=== PATIENT | male | born 1970 | race Hispanic/Latino ===

== ENCOUNTER 2019-01-24 14:28 | Emergency (ER) | payer OTHER ==
--- OUTSIDE RECORDS SUMMARY | 2019-01-24 14:31 | XMS REPORT | Clinical Summary ---
:1970 Author Organization [facility] Address [address] [place] [address] Care Team Providers Name Role Phone Ebenezer Callejas Primary Care Provider Allergies Active Allergy Reactions Severity Noted Date Comments Penicillins Other (See Comments) 10/02/2017 As a kid Medications Medication Sig Dispensed Refills Start Date End Date Status QUEtiapine (SEROQUEL) Take 100 mg by 0 Active 100 MG tablet mouth nightly. rivaroxaban (XARELTO) Take 1 tablet (10 30 tablet 0 10/12/2017 Active 10 mg Tab tablet mg total) by mouth daily with dinner. apixaban (ELIQUIS) 5 Take 1 tablet (5 74 tablet 0 11/15/2017 Active mg Tab tablet mg total) by mouth 2 (two) times daily Take 2 tablets twice a day for 7 days then 1 tablet twice a day.. Active Problems Problem Noted Date Osteoarthritis of right ankle, unspecified osteoarthritis type 10/12/2017 Osteoarthritis of right ankle 10/10/2017 Social History Tobacco Use Types Packs/Day Years Used Date Never Smoker Smokeless Tobacco: Never Used Alcohol Use Drinks/Week oz/Week Comments Yes 4 Cans of beer 2.4 Sex Assigned at Date Recorded Not on file Job Start Date Occupation Industry Not on file Not on file Not on file Travel History Travel Start Travel End No recent travel history available. Last Filed Vital Signs Not on file Plan of Treatment Not on file Implants Implanted Type Area Health Care Coordinator Device Shelf Model / Identifier Expiration Serial / Lot Date Inbone Tibial Top Stem Plasma Boling Right: NDIAYE MED 09/24/2025 [id number] / Implanted: Qty: 1 on 10/10/2017 by Chadwick Higginbotham MD Ankle GRP: [employer]YE MED / TECH [id number] Inbone Tibial Mid Stem Plasma Boling Right: [employer] MED 01/20/[id number] / Implanted: Qty: 1 on 10/10/2017 by Chadwick Higginbotham MD Ankle GRP: [employer]YE MED / TECH [id number] Inbone Tibial Base Stem Plasma Boling Right: [employer]YE MED 05/01/[id number] / Implanted: Qty: 1 on 10/10/2017 by Chadwick Higginbotham MD Ankle GRP: [employer]YE MED / TECH [id number] Inbone Tibial Tray Plasma Boling Right: [employer] MED 09/02/[id number] / Implanted: Qty: 1 on 10/10/2017 by Chadwick Higginbotham MD Ankle GRP: ND[employer]YE MED / TECH [id number] Inbone Talar Stem Plasma Boling Right: [employer]YE MED 09/02/[id number] / Implanted: Qty: 1 on 10/10/2017 by Chadwick Higginbotham MD Ankle GRP: [employer]YE MED / TECH [id number] Inbone Talar Dome Sulcus, Plasma Boling Right: [employer]YE MED 09/16/[id number] / Implanted: Qty: 1 on 10/10/2017 by Chadwick Higginbotham MD Ankle GRP: [employer]YE MED / TECH [id number] Inbone Polyinsert Ankle [employer]YE MED 06/13/2018 [id number] / Implanted: Qty: 1 on 10/10/2017 by Chadwick Higginbotham MD GRP:[employer]YE MED / TECH [id number] Darco Headed Screw 6.5x50mm Ankle [employer] MED [id number] / Implanted: Qty: 1 on 10/10/2017 by Chadwick Higginbotham MD GRP:[employer]YE MED / TECH Darco Headed Screw 7.5 X 50 Right: ND[employer]YE MED [id number] / Implanted: Qty: 1 on 10/10/2017 by Chadwick Higginbotham MD Ankle GRP: [employer] MED / TECH Results Not on fileafter 01/23/2018 Insurance Payer Benefit Plan / Group Subscriber ID Type Phone Address [facility] xxxxxxxx CARE CHOICE POS Advance Directives For more information, please contact:[address] [phone] Code Status Date Activated Date Inactivated Comments Full Code 10/10/2017 10:31 AM 10/13/2017 6:09 PM This code status was determined by: Patient
--- OUTSIDE RECORDS SUMMARY | 2019-01-24 14:31 | XMS REPORT | Clinical Summary ---
:1970 Author Organization [facility] Address [address] [place] [address] Care Team Providers Name Role Phone Asked, No Pcp Primary Care Provider Unavailable Allergies Active Allergy Reactions Severity Noted Date Comments Penicillins 07/11/2018 As a child Medications Medication Sig Dispensed Refills Start Date End Date Status celecoxib Take 1 capsule 30 capsule 2 09/26/2018 Active (CeleBREX) 200 MG (200 mg total) capsule by mouth daily. QUEtiapine Take 100 mg by 0 Active (SEROquel) 100 MG mouth nightly. tablet traMADol (ULTRAM) Take 1 tablet 30 tablet 0 11/27/2018 11/27/2018 Discontinued 50 mg tablet (50 mg total) by mouth every 8 (eight) hours as needed for moderate pain for up to 30 days. HYDROcodone-acetam Take 1 tablet 30 tablet 0 11/27/2018 12/07/2018 inophen (NORCO) by mouth every 5-325 mg per 8 (eight) tablet hours as needed for moderate pain for up to 10 days. Max Daily Amount: 3 tablets HYDROcodone-acetam Take 1 tablet 25 tablet 0 12/13/2018 12/18/2018 inophen (NORCO) by mouth every 7.5-325 mg per 4 (four) hours tablet as needed for moderate pain for up to 5 days. Max Daily Amount: 6 tablets promethazine Take 1 tablet 10 tablet 0 12/13/2018 01/12/2019 (PHENERGAN) 25 MG (25 mg total) tablet by mouth every 6 (six) hours as needed for nausea or vomiting for up to 30 days. Active Problems Problem Noted Date Corporo-venous occlusive erectile dysfunction 12/18/2017 Osteoarthritis of right ankle 10/10/2017 Arthritis of ankle 06/03/2017 Encounters Date Type Specialty Care Team Description 01/08/2019 Abstract Orthopedic Surgery Chadwick Higginbotham MD 12/30/2018 Office Visit Orthopedic Surgery Chadwick Higginbotham Retained orthopedic hardware (Primary Dx); MD Brian S/Jill ankle joint replacement, right 12/13/2018 Surgery Orthopedic Surgery Chadwick Higginbotham REMOVAL OF HARDWARE MD Brian RIGHT CALCANEUS 12/13/2018 Anesthesia Event Orthopedic Surgery Sanam Dove, PEG 12/13/2018 Hospital Encounter Orthopedic Surgery Chadwick Higginbotham MD 12/11/2018 Orders Only Orthopedic Surgery Corral, Mattie Pain of right heel ( Primary Dx); Retained orthopedic hardware 12/02/2018 Pre-Admit Testing Pre-Admission Chadwick Higginbotham Preop testing ( Primary Appointment Testing MD Brian Dx) 11/27/2018 Office Visit Orthopedic Surgery Chadwick Higginbotham Retained orthopedic hardware (Primary Dx); MD Brian Pain of right heel 11/27/2018 Orders Only Orthopedic Surgery Ocrral, Mattie 09/26/2018 Office Visit Orthopedic Surgery Chadwick Higginbotham S/Jill ankle joint replacement, right (Primary Dx); MD Brian Primary osteoarthritis of right ankle 07/11/2018 Office Visit Orthopedic Surgery Chadwick Higginbotham/Jill ankle joint MD Brian replacement, right (Primary Dx) 07/04/2018 Orders Only Orthopedic Surgery Corral, Mattie after 01/23/2018 Social History Tobacco Use Types Packs/Day Years Used Date Never Smoker Smokeless Tobacco: Never Used Alcohol Use Drinks/Week oz/Week Comments Yes 10 Standard drinks or equivalent 6.0 week Alcohol Habits Answer Date Recorded How often do you have a drink containing alcohol? Never 12/02/2018 How many drinks containing alcohol do you have on a typical Not asked day when you are drinking? How often do you have six or more drinks on one occasion? Not asked Sex Assigned at Date Recorded Not on file Job Start Date Occupation Industry Not on file Not on file Not on file Travel History Travel Start Travel End No recent travel history available. Last Filed Vital Signs Vital Sign Reading Time Taken Blood Pressure 135/90 12/13/2018 11:30 AM SPRING MACHINE OPERATOR Pulse 62 12/13/2018 11:30 AM SPRING MACHINE OPERATOR Temperature 36.4 C (97.5 F) 12/13/2018 9:59 AM SPRING MACHINE OPERATOR Respiratory Rate 16 12/13/2018 9:59 AM SPRING MACHINE OPERATOR Oxygen Saturation 98% 12/13/2018 11:30 AM SPRING MACHINE OPERATOR Inhaled Oxygen Concentration - - Weight 95.6 kg (210 lb 12.8 oz) 12/13/2018 7:58 AM SPRING MACHINE OPERATOR Height 180.3 cm (5' 11") 12/13/2018 7:58 AM SPRING MACHINE OPERATOR Body Mass Index 29.4 12/13/2018 7:58 AM SPRING MACHINE OPERATOR Plan of Treatment Date Type Specialty Care Team Description 04/24/2019 Office Visit Orthopedic Surgery Chadwick Higginbotham MD [address] [facility] [address] [place] [address] [phone] Health Maintenance Due Date Last Done Comments INFLUENZA VACCINE 05/15/2019 Procedures Procedure Name Priority Date/Time Associated Diagnosis Comments REMOVAL, IMPLANT OR 12/13/2018 1:45 PM Retained orthopedic HARDWARE, ANKLE SPRING MACHINE OPERATOR hardware Right foot pain Case Notes LARGE C-ARM Special Needs SUPINE POSITION, DARCO 6.5 SCREWS, LARGE C-ARM OR FL > 1 HOUR Routine 12/13/2018 9:01 AM SPRING MACHINE OPERATOR ME AN ELECTIVE SUPRAGLOTTIC Routine 12/13/2018 8:33 AM SPRING MACHINE OPERATOR AIRWAY Procedure Note - Edwardo Valdez CRNA - 12/13/2018 8:33 AM SPRING MACHINE OPERATOR Airway Date/Time: 12/13/2018 8:14 AM Performed by: Edwardo Valdez CRNA Authorized by: Kehinde Rivas MD Location: OR Urgency: Elective Difficult Airway: No Preoxygenated with 100% O2: Yes C-spine Precautions Maintained Throughout: Yes Mask Ventilation: Easy mask Final Airway Type: Supraglottic airway Final LMA: I-Gel LMA Size: 5 Number of Attempts at Approach: 1 ECG PRE/POST OP Routine 12/02/2018 2:16 PM Preop testing Results for this SPRING MACHINE OPERATOR procedure are in the results section. ESTIMATED GFR Routine 12/02/2018 2:06 PM Results for this SPRING MACHINE OPERATOR procedure are in the results section. BASIC METABOLIC Routine 12/02/2018 2:06 PM Preop testing Results for this PANEL SPRING MACHINE OPERATOR procedure are in the results section. XR ANKLE 3+ VW Routine 09/26/2018 3:09 PM S/P ankle joint Results for this RIGHT SPRING MACHINE OPERATOR replacement, right procedure are in Primary osteoarthritis the results of right ankle section. XR ANKLE 3+ VW Routine 07/11/2018 1:15 PM S/P ankle joint Results for this RIGHT CDT replacement, right procedure are in the results section. after 01/23/2018 Results OR FL > I Hour (12/13/2018 9:01 AM SPRING MACHINE OPERATOR) Narrative Performed At EXAMINATION:OR FL> 1 HOUR [facility] C-arm fluoroscopy was requested in OR. Location:[facility] - OR1 Procedure:Right Calcaneus Removal of Hardware Start Time:714 End Time: 899 Fluoro Time:3 SEC Dose (mGy): 0.18 mGy Tech(s): jm IMPRESSION: Separate operative report will be issued by the physician performing the procedure. [id number] Procedure Note Hm Interface, Radiology Results Incoming - 12/13/2018 3:27 PM SPRING MACHINE OPERATOR EXAMINATION: OR FL > 1 HOUR C-arm fluoroscopy was requested in OR. Location: [facility] - OR1 Procedure: Right Calcaneus Removal of Hardware Start Time: 714 End Time: 899 Fluoro Time: 3 SEC Dose (mGy): 0.18 mGy Tech(s): jm IMPRESSION: Separate operative report will be issued by the physician performing the procedure. [id number] Performing Organization Address City/[facility]/Zipcode Phone Number [facility] [address] [place] [address] ECG Pre/Post Op (12/02/2018 2:16 PM SPRING MACHINE OPERATOR) Ventricular rate 70 [facility] Atrial rate 70 [facility] ME interval 136 [facility] QRSD interval 86 [facility] QT interval 396 [facility] QTC interval 427 [facility] P axis 1 30 [facility] QRS axis 1 83 [facility] T wave axis 5 [facility] EKG impression Normal sinus rhythm-Normal ECG-No previous [facility] MUSE ECGs available- Narrative Performed At Performing Organization Address [facility] Phone Number [employer] MUSE [address] [place] [address] Estimated GFR (12/02/2018 2:06 PM SPRING MACHINE OPERATOR) Estimated GFR >=90 mL/min/1.73 m2 [facility] Comment: HOSPITAL CatergoryUnitsInterpretation G1 >=90 Normal or high G2 60-89Mildly decreased S4w40-56Gxsgcx to moderately decreased B7q83-36Ceppcahxpc to severely decreased G4 15-29Severely decreased G5 <15Kidney failure The eGFR was calculated using the Chronic Kidney Disease Epidemiology Collaboration (CKD-EPI) equation. Interpretation is based on recommendations of the National Kidney Foundation-Kidney Disease Outcomes Quality Initiative (NKF-KDOQI) published in 2014. Specimen Plasma specimen Performing Organization Address City/[facility]/Zipcode Phone Number [facility] DEPARTMENT OF PATHOLOGY AND [address] [place], [place] [id number] [place] [phone] Basic metabolic panel (12/02/2018 2:06 PM SPRING MACHINE OPERATOR) Sodium 142 135 - 148 mEq/L [facility] Potassium 3.9 3.5 - 5.0 mEq/L [facility] Chloride 101 98 - 112 mEq/L [facility] CO2 27 24 - 31 mEq/L [facility] Anion gap 14@ANIO 7 - 15 mEq/L [facility] BUN 15 6 - 20 mg/dL [facility] Creatinine 0.98 0.70 - 1.20 mg/dL [facility] Glucose 79 65 - 99 mg/dL [facility] Calcium 9.5 8.3 - 10.2 mg/dL [facility] Specimen Plasma specimen Performing Organization Address City/[facility] Cent[facility]ode Phone Number [facility] DEPARTMENT OF PATHOLOGY AND [address] [place] [address] [address] XR Ankle 3+ Vw Right (09/26/2018 3:09 PM SPRING MACHINE OPERATOR)Only the most recent of2 resultswithin the time period is included. Narrative Performed At 3 weightbearing views the right ankle been reviewed and demonstrate good [facility] alignment of the inbone prosthesis.There is a small amount of lateral gutter osteophyte formation.Calcaneal screws are somewhat prominent. Otherwise see no significant abnormality or sign of implant loosening. Performing Organization Address City/[facility]/Zipcode Phone Number [facility] [address] [place] [address] after 01/23/2018 Insurance Payer Benefit Plan / Group Subscriber ID Type Phone Address [facility] CHOICE [employer] xxxxxxxx PPO Advance Directives Patient has advance care planning documents on file. For more information, please contact:Gautam Willoughby[address] [place] [address]
--- OUTSIDE RECORDS SUMMARY | 2019-01-24 14:31 | XMS REPORT ---
:1970 [facility] Address [address] [place] [address] [address] [place] [address] Care Team Providers Name Role Phone LEXUS ROUSE Unavailable Unavailable JUANITO MENDIOLA Unavailable Unavailable Problems This patient has no known problems. Allergies, Adverse Reactions, Alerts This patient has no known allergies or adverse reactions. Medications This patient has no known medications. Results Test Description Test Time Test Comments Text Results Atomic Results Result Comments BRAD WALLACE IN 2018-02-20 17:07:00 Reason for PROCEDURE PERFORMED IN OR/30 MINUTE exam:->right O.R. - PLEASE REFER TO INCREMENTS infinity total ankle THE INTRAOPERATIVE replacement REPORT. Electronically calcaneal oseotomy signed by: ELECTRONICALLYVER BY RADIOLOGY on 02/20/2018 05:[address], CHEST WITH IV 2017-11-15 21:48:00 Reason for FINAL REPORT PATIENT ID: CONTRAST- PE TEST exam:->LEG [id number] TECHNIQUE: CT DESIGN PAINReason for scan of the chest WITH exam:->CHEST intravenous contrast. PAINWhat is the Dose modulation, patient's sedation iterative reconstruction, requirement?->No and/or weight-based Sedation adjustment of the mA/kV was utilized to reduce the radiation dose to as low as reasonably achievable. INDICATION: 47-year-old man with leg pain and chest pain. COMPARISON: None. FINDINGS: LINES/TUBES: None. PULMONARY ARTERIES: Proximal to the bifurcation of the main pulmonary artery, the main pulmonary artery is 2.3 cm in diameter. No filling defects within the pulmonary arteries to suggest pulmonary embolus. LUNGS AND AIRWAYS: The lungs and airways are normal without focal abnormality. PLEURA: The pleural spaces are clear. HEART AND MEDIASTINUM: The visualized thyroid gland is normal. No significant mediastinal, hilar, or axillary lymphadenopathy. The heart and pericardium are within normal limits. SOFT TISSUES AND BONES: Unremarkable. UPPER ABDOMEN: Decreased attenuation of the liver, consistent with hepatic steatosis. The gastric fundus is wrapped around the distal esophagus above the diaphragm. IMPRESSION:No pulmonary emboli or other acute abnormalities in the chest. Findings at the gastroesophageal junction may represent changes from prior fundoplication, which has herniated above the diaphragm, versus paraesophageal hiatal hernia. Signed: Norma Patrick MDReport Verified Date/Time: 11/15/2017 21:48:27 Reading Location: [facility] C0[facility] Consult Reading Room , CHEST, 1 VIEW, 2017-11-15 14:44:00 Reason for FINAL REPORT PATIENT ID: NON DEPT exam:->LEG [id number] Chest one view PAINReason for INDICATION: Leg pain, exam:->CHEST PAIN chest pain COMPARISON: None available IMPRESSION: There is no focal consolidation, vascular congestion, pleural effusion, or pneumothorax. Heart size is at the upper limit of normal. The aorta is mildly ectatic/tortuous. There are degenerative spine changes. Signed: Dominguez Boucher MDReport Verified Date/Time: 11/15/2017 14:44:51 Reading Location: [facility] [id number] Consult Reading Room B-TYPE NATRIURETIC FACTOR (BNP) 2017-11-15 14:35:00 Test Item Value Reference Range Comments B-TYPE NATRIURETIC PEPTIDE (BEAKER) (test jyzp=097) 40 pg/mL 0-100 CREATINE KINASE (CK), TOTAL AND [id number] 14:30:00 Test Item Value Reference Range Comments CREATINE KINASE TOTAL (BEAKER) (test jybo=675) 223 U/L 29-200 CREATINE KINASE-MB (BEAKER) (test cvnw=673) 1.0 ng/mL 0.0-6.6 CREATINE KINASE-MB INDEX (BEAKER) (test zucg=689) 0.4 % CK-MB Reference Range:<6.7 Normal6.7-10.0 Borderline>10.0 AbnormalTROPONIN [id number] 14:30:00 Test Item Value Reference Range Comments TROPONIN I (BEAKER) (test utpp=022) 0.01 ng/mL 0.00-0.03 Troponin I (TnI) levels must be interpreted in the context of the presenting symptoms and the clinical findings. Elevated TnI levels indicate myocardial damage, but are not specific for ischemic heart disease. Elevated TnI levels are seen in patients with other cardiac conditions (including myocarditis and congestive heart failure), and slight TnI elevations occur in patients with other conditions, including sepsis, renal failure, acidosis, acute neurological disease, and persistent tachyarrhythmia.[id number] 14:23:00 Test Item Value Reference Range Comments MAGNESIUM (BEAKER) (test pjys=114) 2.1 mg/dL 1.6-2.6 BASIC METABOLIC [id number] 14:23:00 Test Item Value Reference Range Comments SODIUM (BEAKER) (test 141 meq/L 136-145 nwvg=094) POTASSIUM (BEAKER) (test 4.1 meq/L 3.5-5.1 xloy=897) CHLORIDE (BEAKER) (test 106 meq/L 98-107 hohk=777) CO2 (BEAKER) (test 25 meq/L 22-29 zpip=220) BLOOD UREA NITROGEN 13 mg/dL 7-21 (BEAKER) (test uzcd=802) CREATININE (BEAKER) (test 0.97 mg/dL 0.57-1.25 gomc=986) GLUCOSE RANDOM (BEAKER) 82 mg/dL 70-105 (test luob=894) CALCIUM (BEAKER) (test 9.4 mg/dL 8.4-10.2 ubsq=899) EGFR (BEAKER) (test 83 mL/min/1.73 sq m ESTIMATED GFR IS NOT sfvb=2034) ACCURATE CREATININE CLEARANCE IN PREDICTING GLOMERULAR FILTRATION RATE. ESTIMATED GFR IS NOT APPLICABLE FOR DIALYSIS PATIENTS. PT/[id number] 14:20:00 Test Item Value Reference Range Comments PROTIME (BEAKER) (test gqdc=561) 14.1 seconds 11.7-14.7 INR (BEAKER) (test oqvk=693) 1.1 <=5.9 PARTIAL THROMBOPLASTIN TIME (BEAKER) (test 30.1 seconds 22.5-36.0 mbpd=385) RECOMMENDED COUMADIN/WARFARIN INR THERAPY RANGESSTANDARD DOSE: 2.0 - 3.0 Includes: PROPHYLAXIS forvenous thrombosis, systemic embolization; TREATMENT for venous thrombosis and/or pulmonary embolus.HIGH RISK: Target INR is 2.5-3.5 for patients with mechanical heart valves.CBC W/PLT COUNT & AUTO [id number] 12:44:00 Test Item Value Reference Range Comments WHITE BLOOD CELL COUNT (BEAKER) (test rzpp=406) 5.9 K/ L 3.5-10.5 RED BLOOD CELL COUNT (BEAKER) (test oleb=624) 4.98 M/ L 4.63-6.08 HEMOGLOBIN (BEAKER) (test rmeq=689) 15.3 GM/DL 13.7-17.5 HEMATOCRIT (BEAKER) (test mexr=386) 48.2 % 40.1-51.0 MEAN CORPUSCULAR VOLUME (BEAKER) (test wfhn=451) 96.8 fL 79.0-92.2 MEAN CORPUSCULAR HEMOGLOBIN (BEAKER) (test 30.7 pg 25.7-32.2 qhrz=958) MEAN CORPUSCULAR HEMOGLOBIN CONC (BEAKER) (test 31.7 GM/DL 32.3-36.5 uume=775) RED CELL DISTRIBUTION WIDTH (BEAKER) (test 12.5 % 11.6-14.4 xaar=487) PLATELET COUNT (BEAKER) (test uhrk=516) 175 K/CU MM 150-450 MEAN PLATELET VOLUME (BEAKER) (test savo=440) 10.2 fL 9.4-12.4 NUCLEATED RED BLOOD CELLS (BEAKER) (test 0 /100 WBC 0-0 aksj=496) NEUTROPHILS RELATIVE PERCENT (BEAKER) (test 57 % ulnx=810) LYMPHOCYTES RELATIVE PERCENT (BEAKER) (test 30 % jjil=959) MONOCYTES RELATIVE PERCENT (BEAKER) (test 10 % xjhk=746) EOSINOPHILS RELATIVE PERCENT (BEAKER) (test 2 % euld=197) BASOPHILS RELATIVE PERCENT (BEAKER) (test 2 % oopi=412) NEUTROPHILS ABSOLUTE COUNT (BEAKER) (test 3.32 K/ L 1.78-5.38 bdky=378) LYMPHOCYTES ABSOLUTE COUNT (BEAKER) (test 1.74 K/ L 1.32-3.57 ajnb=424) MONOCYTES ABSOLUTE COUNT (BEAKER) (test 0.58 K/ L 0.30-0.82 yiux=242) EOSINOPHILS ABSOLUTE COUNT (BEAKER) (test 0.09 K/ L 0.04-0.54 pgok=722) BASOPHILS ABSOLUTE COUNT (BEAKER) (test 0.09 K/ L 0.01-0.08 pluq=314) IMMATURE GRANULOCYTES-RELATIVE PERCENT (BEAKER) 1 % 0-1 (test cnxy=5409) BASIC METABOLIC [id number] 06:21:00 Test Item Value Reference Range Comments SODIUM (BEAKER) (test 136 meq/L 136-145 phlr=263) POTASSIUM (BEAKER) (test 4.2 meq/L 3.5-5.1 unwt=845) CHLORIDE (BEAKER) (test 105 meq/L 98-107 ontf=666) CO2 (BEAKER) (test 23 meq/L 22-29 hnxd=897) BLOOD UREA NITROGEN 10 mg/dL 7-21 (BEAKER) (test ciqa=441) CREATININE (BEAKER) (test 0.85 mg/dL 0.57-1.25 giwr=463) GLUCOSE RANDOM (BEAKER) 117 mg/dL 70-105 (test cywk=557) CALCIUM (BEAKER) (test 9.0 mg/dL 8.4-10.2 fzry=275) EGFR (BEAKER) (test 97 mL/min/1.73 sq m ESTIMATED GFR IS NOT nrha=9310) ACCURATE CREATININE CLEARANCE IN PREDICTING GLOMERULAR FILTRATION RATE. ESTIMATED GFR IS NOT APPLICABLE FOR DIALYSIS PATIENTS. CBC (HEMOGRAM ONLY)2017-10-12 05:57:00 Test Item Value Reference Range Comments WHITE BLOOD CELL COUNT (BEAKER) (test gvty=600) 10.5 K/ L 3.5-10.5 RED BLOOD CELL COUNT (BEAKER) (test ehhb=261) 4.56 M/ L 4.63-6.08 HEMOGLOBIN (BEAKER) (test nagy=044) 14.0 GM/DL 13.7-17.5 HEMATOCRIT (BEAKER) (test kmni=807) 41.6 % 40.1-51.0 MEAN CORPUSCULAR VOLUME (BEAKER) (test dcef=956) 91.2 fL 79.0-92.2 MEAN CORPUSCULAR HEMOGLOBIN (BEAKER) (test 30.7 pg 25.7-32.2 qsfo=872) MEAN CORPUSCULAR HEMOGLOBIN CONC (BEAKER) (test 33.7 GM/DL 32.3-36.5 abvb=129) RED CELL DISTRIBUTION WIDTH (BEAKER) (test 12.3 % 11.6-14.4 pqau=878) PLATELET COUNT (BEAKER) (test dvcm=772) 213 K/CU MM 150-450 MEAN PLATELET VOLUME (BEAKER) (test lzjw=583) 9.7 fL 9.4-12.4 NUCLEATED RED BLOOD CELLS (BEAKER) (test 0 /100 WBC 0-0 dgzo=874) CBC (HEMOGRAM ONLY)2017-10-11 05:26:00 Test Item Value Reference Range Comments WHITE BLOOD CELL COUNT (BEAKER) (test rktl=531) 12.0 K/ L 3.5-10.5 RED BLOOD CELL COUNT (BEAKER) (test lhhc=299) 4.73 M/ L 4.63-6.08 HEMOGLOBIN (BEAKER) (test ewja=824) 14.6 GM/DL 13.7-17.5 HEMATOCRIT (BEAKER) (test algm=938) 43.8 % 40.1-51.0 MEAN CORPUSCULAR VOLUME (BEAKER) (test kkse=863) 92.6 fL 79.0-92.2 MEAN CORPUSCULAR HEMOGLOBIN (BEAKER) (test 30.9 pg 25.7-32.2 waiu=847) MEAN CORPUSCULAR HEMOGLOBIN CONC (BEAKER) (test 33.3 GM/DL 32.3-36.5 sonr=397) RED CELL DISTRIBUTION WIDTH (BEAKER) (test 12.2 % 11.6-14.4 ugpp=901) PLATELET COUNT (BEAKER) (test zsut=057) 237 K/CU MM 150-450 MEAN PLATELET VOLUME (BEAKER) (test dqxm=253) 9.9 fL 9.4-12.4 NUCLEATED RED BLOOD CELLS (BEAKER) (test 0 /100 WBC 0-0 psji=054) [id number] 10:49:00 Test Item Value Reference Range Comments HEMOGLOBIN (BEAKER) (test mxqg=770) 15.7 GM/DL 13.7-17.5 PLATELET [id number] 10:49:00 Test Item Value Reference Range Comments PLATELET COUNT (BEAKER) (test idzj=995) 227 K/CU MM 150-450
[2019-01-24 15:34] LABS: Absolute Lymphocytes (CBC) 2.2 K/uL (0.7-4.9); Absolute Monocytes 0.7 K/uL (0.1-1.3); Absolute Neutrophil 5.8 K/uL (1.8-8.0); Basophils % 0.4 % (0-1.3); Eosinophils % 0.8 % (0-4.4); Hematocrit 47.2 % (39.6-49.0); Lymphocytes % 25.2 % (15.3-44.8); MPV 7.9 fL (7.6-11.3); RBC Red Blood Cell Count 5.09 M/uL (4.33-5.43)
--- NOTE | 2019-01-24 15:38 | RAD REPORT ---
EXAM DESCRIPTION: Vanessa Single View01/24/2019 3:31 pm CLINICAL HISTORY: Chest pain COMPARISON: none FINDINGS: The lungs appear clear of acute infiltrate. The heart is normal size IMPRESSION: No acute abnormalities displayed
[2019-01-24 15:46] LABS: Protime INR 1.02
[2019-01-24 15:57] LABS: ALT/SGPT 58 U/L (12-78); AST/SGOT 31 U/L (15-37); Albumin 4.2 g/dL (3.4-5.0); Alkaline Phosphatase 80 U/L (45-117); BUN Blood Urea Nitrogen 18 mg/dL (7-18); Bicarbonate 26 mmol/L (21-32); Bilirubin Direct 0.1 mg/dL (0-0.2); Bilirubin Total 0.6 mg/dL (0.2-1.0); Glucose Level 86 mg/dL (74-106); Magnesium 2.3 mg/dL (1.8-2.4); NT PRO-BNP 48 pg/mL (<125); Sodium Level 141 mmol/L (136-145); Troponin (Emerg Dept Use Only) < 0.02 ng/mL (0.0-0.045)
--- NOTE | 2019-01-24 16:51 | EDPHYS ---
Physician Documentation [facility] Name: Farhan Mckinnon Age: 48 yrs Sex: Male : 1970 Arrival Date: 01/24/2019 Time: 14:34 Bed 20 Private MD: ED Physician Zach Chapin HPI: 01/24 14:59 This 48 yrs old Male presents to ER via Ambulatory with complaints of Near jmm Syncope. 14:59 The patient has experienced near-syncope. Onset: The symptoms/episode began/occurred jmm just prior to arrival, today. Duration: This was a single episode. Associated injury: The patient did not suffer any apparent associated injury. Associated signs and symptoms: Pertinent positives: lightheadedness, Pertinent negatives: chest pain, shortness of breath. This is a 48 year old male with a history of tbi, hlp presents to the ED with complaints of near syncope. Patient states as he was walking earlier today he became lightheaded and sat down. As he sat down he states he may have passed out but unsure of duration. Patient denies chest pain or shortness of breath but states he is under the care of a accountant bookkeeper for ongoing episodes of chest pain. . Historical: - Allergies: 14:38 PENICILLINS; sg - Home Meds: 14:38 None [Active]; sg - PMHx: 14:38 Traumatic Brain Injury; sg - Immunization history:: Adult Immunizations up to date. - Social history:: Smoking status: Patient/guardian denies using tobacco. - Ebola Screening: : Patient negative for fever greater than or equal to 101.5 degrees Fahrenheit, and additional compatible Ebola Virus Disease symptoms Patient denies exposure to infectious person Patient denies travel to an Ebola-affected area in the 21 days before illness onset No symptoms or risks identified at this time. ROS: 14:59 Constitutional: Negative for fever, chills, and weight loss, Cardiovascular: Negative jmm for chest pain, palpitations, and edema, Respiratory: Negative for shortness of breath, cough, wheezing, and pleuritic chest pain. 14:59 Neuro: Positive for near syncope. 14:59 All other systems are negative. Exam: 14:59 Constitutional: This is a well developed, well nourished patient who is awake, alert, jmm and in no acute distress. Head/Face: atraumatic. Eyes: EOMI, no conjunctival erythema appreciated ENT: Moist Mucus Membranes Neck: Trachea midline, Supple Chest/axilla: Normal chest wall appearance and motion. 14:59 Cardiovascular: Rate: normal, Rhythm: regular, Pulses: no pulse deficits are appreciated. 14:59 Respiratory: the patient does not display signs of respiratory distress, Respirations: normal, Breath sounds: are clear throughout. 14:59 Abdomen/GI: Inspection: abdomen appears normal, Bowel sounds: normal, Palpation: abdomen is soft and non-tender. 14:59 Back: ROM is normal. 14:59 Musculoskeletal/extremity: ROM: intact in all extremities. 14:59 Skin: Appearance: Color: normal in color. 14:59 Neuro: Orientation: is normal, Mentation: is normal, Memory: is normal, Cerebellar function: is grossly normal, Gait: is steady, at a normal pace. 14:59 Psych: Behavior/mood is pleasant, cooperative, anxious. Vital Signs: 14:40 BP 147 / 97; Pulse 87; Resp 17; Temp 97.7; Pulse Ox 100% ; Weight 95.25 kg; Height 5 sg ft. 11 in. (180.34 cm); 14:48 BP 143 / 101; Pulse 85; Resp 18; Pulse Ox 99% on R/A; Pain 0/10; em 16:00 BP 132 / 92; Pulse 80; Resp 18; Pulse Ox 99% on R/A; Pain 0/10; em 17:00 BP 134 / 84; Pulse 71; Resp 18; Pulse Ox 99% on R/A; em 14:40 Body Mass Index 29.29 (95.25 kg, 180.34 cm) MDM: 14:59 Patient medically screened. [facility] 16:49 Data reviewed: vital signs, nurses notes, EKG. Counseling: I had a detailed discussion cody with the patient and/or guardian regarding: the historical points, exam findings, and any diagnostic results supporting the discharge/admit diagnosis, lab results, radiology results, the need for outpatient follow up, to return to the emergency department if symptoms worsen or persist or if there are any questions or concerns that arise at home. 16:49 Data reviewed: lab test result(s), radiologic studies, plain films. [facility] 16:49 Test interpretation: by ED physician or midlevel provider: ECG. ED course: perch score [facility] is negative. wagoner Juan syncope rule classifies this patient as low risk. Patient states that he had no eaten since breakfast and has recently changed is diet to driftman meals. episode may be due to this. patient has no chest pain, has no shortness of breath on discharge. vs are normal. patient is advised to closely follow up with cardiology for further evaluation. patient is otherwise given strict return precautions. patient understood and agrees with the plan of care. . 01/24 15:09 Order name: Basic Metabolic Panel; Complete Time: 16:09 [facility] 01/24 15:09 Order name: CBC with Diff; Complete Time: 16:09 [facility] 01/24 15:09 Order name: LFT's; Complete Time: 16:09 [facility] 01/24 15:09 Order name: Magnesium; Complete Time: 16:09 [facility] 01/24 15:09 Order name: NT PRO-BNP; Complete Time: 16:09 [facility] 01/24 15:09 Order name: PT-INR; Complete Time: 16:09 [facility] 01/24 15:09 Order name: Troponin (emerg Dept Use Only); Complete Time: 16:09 [facility] 01/24 15:09 Order name: XRAY Chest (1 view); Complete Time: 15:45 [facility] 01/24 15:09 Order name: EKG; Complete Time: 15:11 [facility] 01/24 15:09 Order name: Cardiac monitoring; Complete Time: 15:36 [facility] 01/24 15:09 Order name: EKG - Nurse/Tech; Complete Time: 15:36 [facility] 01/24 15:09 Order name: IV Saline Lock; Complete Time: 15:36 [facility] 01/24 15:09 Order name: Labs collected and sent; Complete Time: 15:36 [facility] 01/24 15:09 Order name: O2 Per Protocol; Complete Time: 15:36 [facility] 01/24 15:09 Order name: O2 Sat Monitoring; Complete Time: 15:37 jmm Administered Medications: No medications were administered Disposition: 01/24/19 16:51 Discharged to Home. Impression: Near Syncope. - Condition is Stable. - Discharge Instructions: Near-Syncope. - Medication Reconciliation Form, Thank You Letter, Antibiotic Education, Prescription Opioid Use form. - Follow up: Private Physician; When: 2 - 3 days; Reason: Recheck today's complaints, Continuance of care, Re-evaluation by your physician. Addendum: 01/27/2019 08:42 Co-signature as Attending Physician, Zach Chapin MD I agree with the assessment and k dr plan of care. Signatures: Dispatcher [employer] Miller Villatoro, RN RN Zach Jones MD MD kdr Mickail, Joel, PA PA m Bennett Salvador, STEAMER GUM CANDY STE[employer]ER G[employer] CANDY em Corrections: (The following items were deleted from the chart) 01/24 17:06 16:51 01/24/2019 16:51 Discharged to Home. Impression: Near Syncope. Condition is em Stable. Forms are Medication Reconciliation Form, Thank You Letter, Antibiotic Education, Prescription Opioid Use. Follow up: Private Physician; When: 2 - 3 days; Reason: Recheck today's complaints, Continuance of care, Re-evaluation by your physician. cody 21:56 14:59 Neuro: Orientation: is normal, Mentation: is normal, Memory: is normal, [facility]
--- NOTE | 2019-01-24 16:51 | ER ---
Nurse's Notes [facility] Name: Farhan Mckinnon Age: 48 yrs Sex: Male : 1970 Arrival Date: 01/24/2019 Time: 14:34 Bed 20 Private MD: Diagnosis: Near Syncope Presentation: 01/24 14:34 Presenting complaint: Patient states: Near syncopal episode today at work, reports sg having been seen by a product support analyst in [place], that reports he has an EKG and ultrasound scheduled next weak after being seen in the ER for having CP several days ago. Today was walking door to door and felt very weak and then was going to faint but was able to sit down before passing out. Transition of care: patient was not received from another setting of care. Onset of symptoms was January 24, 2019. Risk Assessment: Do you want to hurt yourself or someone else? Patient reports no desire to harm self or others. Initial Sepsis Screen: Does the patient meet any 2 criteria? No. Patient's initial sepsis screen is negative. Does the patient have a suspected source of infection? No. Patient's initial sepsis screen is negative. Care prior to arrival: None. 14:34 Method Of Arrival: Ambulatory 14:34 Acuity: LESLIE 3 sg Historical: - Allergies: 14:38 PENICILLINS; sg - Home Meds: 14:38 None [Active]; sg - PMHx: 14:38 Traumatic Brain Injury; sg - Immunization history:: Adult Immunizations up to date. - Social history:: Smoking status: Patient/guardian denies using tobacco. - Ebola Screening: : Patient negative for fever greater than or equal to 101.5 degrees Fahrenheit, and additional compatible Ebola Virus Disease symptoms Patient denies exposure to infectious person Patient denies travel to an Ebola-affected area in the 21 days before illness onset No symptoms or risks identified at this time. Screenin:35 Abuse screen: Denies threats or abuse. Nutritional screening: No deficits noted. em Tuberculosis screening: No symptoms or risk factors identified. Fall Risk None identified. Assessment: 14:50 General: Appears in no apparent distress. comfortable, Behavior is calm, cooperative, em Denies fever. Pain: Denies pain. Neuro: Level of Consciousness is awake, alert, obeys commands, Oriented to person, place, time, situation, X Ray Equipment Mechanic are equal bilaterally Moves all extremities. Gait is steady, Speech is normal, Facial symmetry appears normal, Reports a syncopal episode. Cardiovascular: Heart tones S1 S2 present Capillary refill < 3 seconds Patient's skin is warm and dry. Rhythm is sinus rhythm. Respiratory: Airway is patent Respiratory effort is even, unlabored, Respiratory pattern is regular, symmetrical, Breath sounds are clear bilaterally. GI: Abdomen is flat, Patient currently denies nausea, vomiting. Derm: Skin is intact, is healthy with good turgor, Skin is pink, warm \T\ dry. Musculoskeletal: Capillary refill < 3 seconds, Range of motion: intact in all extremities. 15:00 Reassessment: Patient appears in no apparent distress at this time. I agree with above iw assessment by Bennett Salvador LVN. 15:30 Reassessment: Patient appears in no apparent distress at this time. Patient and/or em family updated on plan of care and expected duration. Pain level reassessed. Patient is alert, oriented x 3, equal unlabored respirations, skin warm/dry/pink. 16:38 Reassessment: Patient appears in no apparent distress at this time. provider at bedside em discussing POC. 17:03 Reassessment: Patient appears in no apparent distress at this time. Patient and/or em family updated on plan of care and expected duration. Pain level reassessed. Patient is alert, oriented x 3, equal unlabored respirations, skin warm/dry/pink. Patient states feeling better. Vital Signs: 14:40 BP 147 / 97; Pulse 87; Resp 17; Temp 97.7; Pulse Ox 100% ; Weight 95.25 kg; Height 5 sg ft. 11 in. (180.34 cm); 14:48 BP 143 / 101; Pulse 85; Resp 18; Pulse Ox 99% on R/A; Pain 0/10; em 16:00 BP 132 / 92; Pulse 80; Resp 18; Pulse Ox 99% on R/A; Pain 0/10; em 17:00 BP 134 / 84; Pulse 71; Resp 18; Pulse Ox 99% on R/A; em 14:40 Body Mass Index 29.29 (95.25 kg, 180.34 cm) sg ED Course: 14:34 Patient arrived in ED. sg 14:37 Triage completed. sg 14:37 Arm band placed on. sg 14:45 Meliton Johnston PA is PHCP. [facility] 14:45 Zach Chapin MD is Attending Physician. [facility] 14:45 Bennett Salvador LVN is Primary Nurse. em 14:48 Patient has correct armband on for positive identification. Placed in gown. Bed in low em position. Call light in reach. anode worker on. Pulse ox on. NIBP on. 15:30 XRAY Chest (1 view) In Process Unspecified. EDMS 15:30 Initial lab(s) drawn, by me, sent to lab. Inserted saline lock: 22 gauge in left em forearm, using aseptic technique. Blood collected. 17:03 No provider procedures requiring assistance completed. IV discontinued, intact, em bleeding controlled, No redness/swelling at site. Pressure dressing applied. Administered Medications: No medications were administered Outcome: 16:51 Discharge ordered by MD. [facility] 17:04 Discharged to home ambulatory. em 17:04 Condition: good 17:04 Discharge instructions given to patient, Instructed on discharge instructions, follow up and referral plans. Demonstrated understanding of instructions, follow-up care. 17:06 Patient left the ED. em Signatures: Dispatcher [employer] EDMA Miller Alcaraz, RN RN Meliton Cavazos PA PA [facility] Bennett Salvador LVN LVN em Jayne Horan, RN RN iw
--- NOTE | 2019-01-25 09:45 | EKG ---
Test Date: 2019-01-24 Test Time: 14:35:37 [employer] Trouble Shooter: SUZIE MEASUREMENT RESULTS: Intervals: Rate: 86 MN: 140 QRSD: 68 QT: 338 QTc: 404 [place]: P: 28 MN: 140 QRS: 42 T: 22 INTERPRETIVE STATEMENTS: Normal sinus rhythm Normal ECG No previous ECG available for comparison Electronically Signed On 01-25-19 09:43:06 CDT by Reginaldo Woody
== END 2019-01-24 17:06 | disposition home or self-care (01) ==
LOC: ER 14:28
DX: R55 Syncope and collapse (principal); Z87.820 Personal history of traumatic brain injury; Z88.0 Allergy status to penicillin
CPT/HCPCS: 36415; 71045; 80048; 80076; 83735; 83880; 84484; 85025; 85610; 93005; 99284